=== PATIENT | female | born 1965 | race Caucasian/White ===

== ENCOUNTER 2017-01-12 23:26 | Emergency (ER) | payer SELFPAY ==
--- NOTE | ~2017-01-12 | ER ---
PATIENT'S NAME: [facility] AGE: 51 Y [address] ROOM: [place] [address] LOCATION: ED ADMIT DATE: 01/12/2017 ER/Outpatient Report DISCHARGE DATE: 01/13/2017 FAMILY PHYSICIAN: Samuel Henriquez MD ATTENDING PHYSICIAN: Nikolas Lauren HISTORY OF PRESENT ILLNESS: This patient is a 51-year-old female who comes in with a headache and eye pain. The patient was initially seen by Favian Fisher PA-C. See Favian's dictation in regard to chief complaint, history of present illness, past medical history, physical exam. The patient was given IV fluids along with Benadryl and Compazine. The patient had resolution of her headaches. The patient does have a history of headaches. IMPRESSION: Headache. PLAN: The patient dismissed home. Observation. Activity as tolerated. Continue present home medications and care. Rest. Follow up with personal physician in 1 to 2 days. NIKOLAS LAUREN MD SDS/modl /[id number] d: 01/13/17130 t: 01/13/17 182, OUTPATIENT REPORT
--- NOTE | ~2017-01-12 | ER ---
PATIENT'S NAME: [facility] AGE: 51 Y [address] ROOM: [place] [address] LOCATION: [facility] ADMIT DATE: 01/12/2017 ER/Outpatient Report DISCHARGE DATE: 01/13/2017 FAMILY PHYSICIAN: Samuel Henriquez MD ATTENDING PHYSICIAN: Nikolas Hines Time of Arrival: 2326 hours. Time of Evaluation: 2340 hours. CHIEF COMPLAINT: Migraine headache and red eye. HISTORY OF PRESENT ILLNESS: This is a 51-year-old female, who presents to the ER, who states that she noticed some blood in her right eye a couple of days ago. She is not for sure of any injury to the eye, but she does wear a CPAP mask at night and her mass does not fit her very well, so she thought maybe that could have been the cause of the trauma. She states that the bleeding kind of covered the whole medial aspect of her eye. She has had no change in her vision. She states she also developed a migraine headache the past day as well. She states she does have a history of migraines, it is similar to her previous migraines, it is making her feel dizzy. She has had no recent illness. No fever or chills. No chest pain. No shortness of breath. No nausea, vomiting, or diarrhea. She has not taken anything for her headache today. She has [facility] doctoring with [facility] her [facility] and hypertension. ALLERGIES: NO KNOWN ALLERGIES. MEDICATIONS: Please see medication list nurse's notes. PAST MEDICAL HISTORY: 1. Migraines. 2. Hypertension. 3. Diabetes. SOCIAL HISTORY: She smokes a pack and a half of cigarettes a day. Denies any drug or alcohol use. REVIEW OF SYSTEMS: A 10-point review of systems was completed and was negative with the exception of those discussed in the HPI. PATIENT'S NAME: [facility] AGE: 51 Y [address] ROOM: [place] [address] LOCATION: [facility] ADMIT DATE: 01/12/2017 ER/Outpatient Report DISCHARGE DATE: 01/13/2017 FAMILY PHYSICIAN: Samuel Henriquez MD ATTENDING PHYSICIAN: Nikolas Hines PHYSICAL EXAMINATION: VITAL SIGNS: Height 5 feet and 5 inches stated, weight 91.7 kg taken, blood pressure is 168/89, pulse 94, respirations 18, temperature 98.5 degrees tympanically, and saturations 97% on room air. Marshall Coma Score is 15. GENERAL: Alert, calm, well-developed female, in no acute distress. HEENT: Head: Normocephalic. Eyes: Pupils are equal and reactive to light. She does have blood over the medial aspect of her sclera on the right eye. Throat: No exudates or erythema. Does display moist mucous membranes. LUNGS: Clear to auscultation bilaterally. No wheezes or crackles. Normal respiratory effort. HEART: Regular rate and rhythm. EXTREMITIES: No clubbing, cyanosis, or edema. She has full range of motion of all limbs. LABORATORY DATA AND X-RAYS: None were done. EMERGENCY DEPARTMENT COURSE: I will be turning the patient's care over to Dr. Hines at this time due to shift change. While she was in my care, we did start an IV. We did give her some IV fluids along with Benadryl 50 mg IV and Compazine 10 mg IV. The patient understands and agrees with care and Dr. Hines will be assuming her care. ROSALINA COHEN PA-C FOR MD LARISA MASTERS/carol annl /[id number] d: 01/13/17 0209 t: 01/20/17 1904, OUTPATIENT REPORT
== END 2017-01-13 00:29 | disposition disaster alternative care site (69) ==
LOC: GMED 23:26
DX: R51 Headache (principal); F17.210 Nicotine dependence, cigarettes, uncomplicated; I10 Essential (primary) hypertension; E11.9 Type 2 diabetes mellitus without complications
CPT/HCPCS: J0780; J1200; J7030